=== PATIENT | female | born 1985 | race Caucasian/White ===

== ENCOUNTER 2021-11-04 09:44 | Observation (INO) | payer OTHER, SELFPAY ==
--- NOTE | ~2021-11-04 | US_ITS ---
EXAMINATION: US OB <=14 wk fetus w TV DATE: 11/04/2021 11:24 INDICATION: Pelvic pain and bleeding TECHNIQUE: Real-time transabdominal and transvaginal obstetric ultrasound. FINDINGS: No prior studies for comparison. The uterus measures 7.2 x 4.7 x 5.4 cm. There is mild endometrial thickening measuring 12 mm. No evid ence for intrauterine . There is a mass inferior to the uterus without internal vascularity measuring 1.7 x 4.7 x 7.1 cm there is free fluid surrounding the mass there is a 1.5 cm right ovarian cyst. The left ovary is not well visualized. IMPRESSION: 1. Avascular complex mass inferior to the uterus measuring 7.1 x 4.7 x 1.7 cm. Considerations include exophytic uterine or ovarian mass, resolving hemorrhage, endometrioma. Consider correlation with con trast-enhanced CT. 2: No evidence for intrauterine . Mild endometrial thickening. Reviewed, dictated and finalized at location A. UCTION QUALITY ANALYST IMPRESSION: 1. Avascular complex mass inferior to the uterus measuring 7.1 x 4.7 x 1.7 cm. Considerations include exophytic uterine or ovarian mass, resolving hemorrhage, endometrioma. Consider correlation with contrast-enhanced CT. 2: No evidence for intrauterine . Mild endometrial thickening.
[2021-11-04 09:50] VITALS: BP 143/101; PULSE 84; RESP 16; TEMP 36.6; O2SAT 97
[2021-11-04 10:22] LABS: Basophils Percent Auto 0.5 % (0.2-1.2); Eosinophils Absolute Auto 0.1 K/mm3 (0-0.3); Eosinophils Percent Auto 1.1 % (0-4.4); Hematocrit 37.1 % (37.0-47.0); Hemoglobin 12.3 g/dL (12.0-15.0); Immature Granulocyte Absolute 0.03 K/mm3 (0.00-0.031); Immature Granulocyte Percent A 0.4 % (0-0.5); Immature Platelet Fraction Pct 6.9 % (0.9-11.2); Lymphocytes Absolute Auto 2.05 K/mm3 (0.9-3.2); Lymphocytes Percent Auto 25.8 % (18.3-44.2); Mean Corpuscular HGB Conc 33.2 g/dl (32-36); Mean Corpuscular Hemoglobin 29.2 pg (26-34); Mean Corpuscular Volume 88.1 fl (80-100); Mean Platelet Volume 10.7 fl (7.4-10.4); Monocytes Absolute Auto 0.9 K/mm3 (0.1-0.6); Monocytes Percent Auto 11.3 % (2.6-8.5); Neutrophils Absolute Auto 4.9 K/mm3 (1.3-6.7); Neutrophils Percent Auto 60.9 % (45.5-73.1); Platelet Count Result 241 k/mm3 (150-375); Red Blood Count 4.21 M/mm3 (4.2-5.4); Red Cell Distribution Width 13.5 % (11.5-14.5)
[2021-11-04 10:25] LABS: Add Urine Microscopic? YES; Appearance Urine Clear (Clear); Bilirubin Urine Negative (Negative); Blood Urine 1+ (Negative); Color Urine Yellow (Yellow); Glucose Urine UA Negative (Negative); Ketones Urine Negative (Negative); Leukocyte Esterase Ur Negative LEU/UL (Negative); Mucus Urine Rare /lpf; Nitrate Urine Negative (Negative); Protein Urine 1+ mg/dL (Negative); Specific Grav Ur 1.029 (1.001-1.035); Squamous Epithelial Cell Urine Moderate /hpf (Few); Urobilinogen Urine Negative mg/dL (<2.0)
[2021-11-04 10:57] LABS: Alanine Aminotransferase 160 U/L (4-35); Albumin Level 4.1 g/dL (3.5-5.1); Alkaline Phosphatase 72 U/L (38-126); Anion Gap 7 mmol/L (8-16); Aspartate Amino Transferase 98 U/L (14-36); Bilirubin,Total 0.4 mg/dL (0.2-1.3); Blood Urea Nitrogen 12 mg/dL (7-17); Calcium 9.3 mg/dL (8.4-10.2); Carbon Dioxide 24 mmol/L (22-30); Chloride 103 mmol/L (98-107); Estimated CRCL calculation 78 ml/min; Estimated Glomerular Filt Rate > 60; Glucose 103 mg/dL (65-110); Lipase 75 U/L (23-300); Potassium 3.8 mmol/L (3.4-5.0); Sodium 134 mmol/L (137-145)
--- NOTE | 2021-11-04 11:13 | PC.NURSE ---
pt still in ultrasound at this time.
[2021-11-04 12:34] VITALS: BP 137/95; PULSE 98; RESP 18; O2SAT 98
--- NOTE | 2021-11-04 12:34 | ED.ABDPAIN ---
HPI - Abdominal Pain General Chief Complaint: Abdominal Pain <WILBERT Metcalf Last Filed: 11/04/21 12:38> Stated Complaint: lower abd pain <WILBERT Metcalf Last Filed: 11/04/21 12:38> Time Seen by Provider: 11/04/21 10:20 <WILBERT Metcalf Last Filed: 11/04/21 12:38> Source: patient <WILBERT Metcalf Last Filed: 11/04/21 12:38> Mode of arrival: ambulatory <WILBERT Metcalf Last Filed: 11/04/21 12:38> Limitations: no limitations <WILBERT Metcalf Last Filed: 11/04/21 12:38> History of Present Illness HPI narrative: This is a 36-year-old female that presents to the emergency department for pelvic pain present x2 days. Reports she had a positive September 28. She started bleeding 2 days later. She continued to bleed for a couple of weeks. She figured she had had a miscarriage. She has had some light spotting since. Over the last 2 days she has had some worsening pelvic pain which prompted her to be seen. Denies fever, vomiting, or dysuria. <WILBERT Metcalf Last Filed: 11/04/21 12:38> Related Data Allergies/Adverse Reactions: Allergies Allergy/AdvReac Type Severity Reaction Status Date / Time amoxicillin [From Augmentin] AdvReac Hives Verified 11/04/21 09:57 clavulanic acid AdvReac Hives Verified 11/04/21 09:57 [From Augmentin] hydrocodone AdvReac Nausea and Verified 11/04/21 09:57 Vomiting morphine AdvReac Hypotension Verified 11/04/21 09:57 oxycodone AdvReac Nausea and Verified 11/04/21 09:57 Vomiting prochlorperazine AdvReac Drowsy Verified 11/04/21 09:57 [From Compazine] Sulfa (Sulfonamide AdvReac Nausea and Verified 11/04/21 09:57 Antibiotics) Vomiting <WILBERT Metcalf Last Filed: 11/04/21 12:38> Review of Systems Review of Systems: CONSTITUTIONAL: Denies fever GASTROINTESTINAL: Reports pelvic pain. Denies vomiting GENITOURINARY: Denies dysuria <Jayshree Khan PA-C - Last Filed: 11/04/21 12:38> All systems reviewed & are unremarkable except as noted in HPI and below <Jayshree Khan PA-C - Last Filed: 11/04/21 12:38> PMFSH Past Medical History Medical History: Medical History (Updated 11/04/21 @ 12:38 by Jayshree Khan PA-C) History of osteosarcoma <Jayshree Khan PA-C - Last Filed: 11/04/21 12:38> Social History Social History: Social History (Updated 11/04/21 @ 12:37 by Jayshree Khan PA-C) Smoking status: Never smoker <Jayshree Khan PA-C - Last Filed: 11/04/21 12:38> Exam Narrative: GENERAL: Well-appearing, well-nourished, and in no acute distress. HEAD: Normocephalic, atraumatic. EYES: EOMI. CHEST: Clear to auscultation. No respiratory distress. No wheezes rales or rhonchi HEART: Regular rate and rhythm. No murmur heard. Normal peripheral pulses. ABDOMEN: Soft, nondistended, normal active bowel sounds. Mild tenderness to palpation in the lower abdomen/pelvis, without guarding EXTREMITIES: Normal range of motion. No edema. SKIN: Warm, dry, no rash. NEURO: No focal deficits. Alert and oriented x3. PSYCH: Normal mood and affect PELVIC: Normal external genitalia. Normal-appearing cervix. Very small amount of blood oozing from the cervix <Jayshree Khan PA-C - Last Filed: 11/04/21 12:38> Course GLUER AND SLICER HAND/PA Physician Supervision For this patient encounter, I reviewed the GLUER AND SLICER HAND or PA documentation, treatment plan, and medical decision making; and I had [id number] time with this patient. Patient complains of lower abdominal pain. She appears to be in no acute distress. Plan admit for observation. <Alondra Guthrie MD - Last Filed: 11/04/21 12:42> Vital Signs Vital signs: Vital Signs Temperature 36.6 C 11/04/21 09:50 Pulse Rate 84 11/04/21 09:50 Respiratory Rate 16 11/04/21 09:50 Blood Pressure 143/101 H 11/04/21 09:50 Pulse Oximetry 97 11/04/21 09:50 Temperature 36.6 C 11/04/21 09:50 Puls
[2021-11-04 13:34] VITALS: BP 117/78; PULSE 67; RESP 13; O2SAT 98
[2021-11-04 15:24] VITALS: BMI 26.6
--- NOTE | 2021-11-04 15:53 | ADMGEN ---
This patient, Cindy Tanner, was admitted to [facility] Surg Room 303-01 at 1445. Patient/family oriented to hospital policies and general routines including ID bracelet, bed and alarms, visiting hours, pain management, procedures, bathroom and other care routines, personal items, smoking policy, room service/diet, and visiting hours. Information on how to activate the Rapid Response Team has been discussed. Patient/Family are encouraged to report perceived risks to care and to ask questions if they do not understand what they are told or what they should do.
[2021-11-04 22:00] VITALS: BP 103/55; PULSE 66; RESP 16; TEMP 36.2; O2SAT 99
[2021-11-05 06:00] VITALS: BP 116/50; PULSE 60; RESP 16; TEMP 36.4; O2SAT 98
[2021-11-05 06:53] LABS: Basophils Percent Auto 0.6 % (0.2-1.2); Eosinophils Absolute Auto 0.1 K/mm3 (0-0.3); Eosinophils Percent Auto 2.5 % (0-4.4); Hematocrit 35.4 % (37.0-47.0); Hemoglobin 11.6 g/dL (12.0-15.0); Immature Granulocyte Absolute 0.01 K/mm3 (0.00-0.031); Immature Granulocyte Percent A 0.2 % (0-0.5); Lymphocytes Absolute Auto 2.07 K/mm3 (0.9-3.2); Lymphocytes Percent Auto 39.6 % (18.3-44.2); Mean Corpuscular HGB Conc 32.8 g/dl (32-36); Mean Corpuscular Hemoglobin 28.5 pg (26-34); Mean Platelet Volume 10.2 fl (7.4-10.4); Monocytes Absolute Auto 0.6 K/mm3 (0.1-0.6); Monocytes Percent Auto 12.2 % (2.6-8.5); Neutrophils Absolute Auto 2.4 K/mm3 (1.3-6.7); Neutrophils Percent Auto 44.9 % (45.5-73.1); Platelet Count Result 280 k/mm3 (150-375); Red Blood Count 4.07 M/mm3 (4.2-5.4); Red Cell Distribution Width 13.4 % (11.5-14.5); White Blood Count 5.2 K/mm3 (4.5-10.0)
--- NOTE | 2021-11-05 08:50 | PM.IMHP ---
H&P: HPI History of Present Illness Date/Time: 11/05/21 0850 36 y/o with LMP 08/25/21, had a positive test on 09/28/21. She had assumed she was infertile after chemotherapy. She then developed vaginal bleeding for 2 weeks, and she assumed she'd had a miscarriage. 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 She had intercourse 2 days ago and then developed pain and some spotting afterward. Beta hcg 16K, but with an empty uterus and an extrauterine mass. Pain stable today, and hcg has decreased to 14K. 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 Had surgical excision of the hand lesion, biopsies of lung lesions, placement of a port, chemotherapy, and removal of the port. Had a laparotomy for large ovarian cysts in 2011. She sees specialists at [facility] and is scheduled for CT of lungs next month. She sees Dr. Richards at [facility] to follow low bone mass, as well. Chief Complaint: Pain Review of Systems Review of Systems: All systems reviewed & are unremarkable except as noted in HPI and below PMFSH Past Medical History Medical History (Updated 11/05/21 @ 12:27 by Eber Tejada MD) History of osteosarcoma Surgical History Surgical History H/O hand surgery History of laparotomy History of lung biopsy History of removal of Port-a-Cath Social History Social History Smoking status: Never smoker Alcohol intake: never Substance use type: marijuana Spiritual care concerns: No Comments Past OB: oy in 2007 at term weighing 6#3oz. 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 Meds Home Medications and Allergies Home Medications Medication Instructions Recorded Confirmed Type calcium carbonate 1,000 mg PO DAILY 11/04/21 11/04/21 History cholecalciferol (vitamin D3) 50 mcg PO DAILY 11/04/21 11/04/21 History Allergies Allergy/AdvReac Type Severity Reaction Status Date / Time amoxicillin [From Augmentin] AdvReac Hives Verified 11/04/21 19:53 clavulanic acid AdvReac Hives Verified 11/04/21 19:53 [From Augmentin] hydrocodone AdvReac Nausea and Verified 11/04/21 19:53 Vomiting morphine AdvReac Hypotension Verified 11/04/21 19:53 oxycodone AdvReac Nausea and Verified 11/04/21 19:53 Vomiting prochlorperazine AdvReac Drowsy Verified 11/04/21 19:53 [From Compazine] Sulfa (Sulfonamide AdvReac Nausea and Verified 11/04/21 19:53 Antibiotics) Vomiting Vital Signs Vital Signs - 24 hr 11/04/21 12:34 11/04/21 13:34 11/04/21 22:00 Temperature 36.2 C L Pulse Rate 98 67 66 Respiratory Rate 18 13 16 Blood Pressure 137/95 H 117/78 103/55 L Pulse Oximetry 98 98 99 11/05/21 06:00 Temperature 36.4 C Pulse Rate 60 Respiratory Rate 16 Blood Pressure 116/50 L Pulse Oximetry 98 Exam Const: Orientation/consciousness: patient oriented x3 Other: Well-developed, well-nourished female in no acute distress. Neck: Thyroid: thyroid normal Lymphatic: no lymphadenopathy noted (in neck, axilla or inguinal nodes) Resp: Effort & Inspection: normal respiratory effort Auscultation: clear to auscultation bilaterally Cardio: Rate: regular rate Rhythm: regular rhythm Heart sounds: S1 normal heart sound present and S2 normal heart sound present GI: Other: ABD: Soft, nondistended. Mildly tender in lower quadrants, R>L, remote from McBurney's point. No guarding or rebound tenderness. No hepatosplenomegaly. : General: Yes no CVA tenderness Other: Deferred. (Pt. in hospital bed.) Back/Spine/Pelvis: Back: no CVA tenderness Skin: General skin exam: normal color and no rashes or lesions noted Neuro: General: patient oriented x3 Extrem: Other: Extremities: nontender with no edema Psych: Mental Status: mental status grossly normal Affect: normal affect H&P: Results Labs La
[2021-11-05] MEDS: METHOTREXATE SODIUM/PF 50 MG/2 ML VIAL 46 MG IM ×2 (13:21→13:22)
== END 2021-11-05 14:50 | disposition home or self-care (01) ==
LOC: ANHED 12:22 → ANH3MEDSUR 14:27
PROVIDERS: Physician Assistant; Admitting Provider Obstetrics & Gynecology; Emergency Provider Emergency Medicine; Visit Provider Obstetrics & Gynecology
DX: O00.90 Unspecified ectopic pregnancy without intrauterine pregnancy (principal); Z85.831 Personal history of malignant neoplasm of soft tissue; C78.00 Secondary malignant neoplasm of unspecified lung; R19.00 Intra-abdominal and pelvic swelling, mass and lump, unspecified site; Z92.21 Personal history of antineoplastic chemotherapy; Z28.21 Immunization not carried out because of patient refusal; Z3A.00 Weeks of gestation of pregnancy not specified
CPT/HCPCS: 36415; 76801; 76817; 80053; 81001; 81025; 83690; 84702; 85025; 85055; 85461; 96365; 96372; 96374; 96376; 99285; G0378; J0131; J9260

== ENCOUNTER 2021-11-28 16:26 | Outpatient (CLI) | payer OTHER, SELFPAY ==
[2021-11-28 17:35] LABS: Beta HCG Quantitative 236.09 mIU/ML
== END 2021-11-28 16:27 | disposition home or self-care (01) ==
LOC: ANHLAB 16:30
PROVIDERS: Visit Provider Obstetrics & Gynecology
DX: O00.90 Unspecified ectopic pregnancy without intrauterine pregnancy (principal); Z3A.00 Weeks of gestation of pregnancy not specified
CPT/HCPCS: 36415; 84702

== ENCOUNTER 2023-03-06 11:45 | Emergency (ER) | payer OTHER, SELFPAY ==
--- NOTE | ~2023-03-06 | CT_ITS ---
EXAMINATION: CT abdomen pelvis w con DATE: 03/06/2023 14:13 INDICATION: Abdominal and low back pain. History of kidney stones and ovarian cyst. History of osteos arcoma. TECHNIQUE: Computed tomography (CT) of the abdomen and pelvis was performed with 100 CC Omnipaque 350 intravenous contrast. Automated exposure control and iterative reconstruction technique were employe d. Exam dose: 311.19 mGy-cm total exam DLP. COMPARISON: None. FINDINGS: The lung bases are clear of infiltrate or consolidation. Normal heart size. No pericardial or pleural effusion. Very small sliding hiatal hernia. The gallbladder is contracted. No gallbladder wall thickening or pericholecystic fluid or fat strandi ng. No bile duct or pancreatic duct dilatation. No hepatic, splenic, pancreatic or adrenal space-occupying mass lesion. There is a pinpoint probable nonobstructing upper pole right renal calculus. There is a 2 mm nonobstructing mid left renal calculus. A pinpoint several lower pole nonobstructing left renal calculus No other urinary tract calculus or hydroureteronephrosis is detected. Normal caliber of the abdominal aorta. No intraperitoneal or retroperitoneal or pelvic mass lesion or adenopathy or ascites. Retroverted uterus. The adnexal areas are unremarkable. The urinary bladder appears normal. Normal appendix. Diverticulosis of the left and right colon; no CT evidence of diverticulitis. No bowel obstruction, b owel wall thickening, pneumatosis or intraperitoneal free air. Small fat-containing umbilical hernia. No suspicious osteolytic or osteoblastic lesions are noted. IMPRESSION: Mild bilateral nephrolithiasis; no urinary tract obstruction or hydronephrosis Very small sliding hiatal hernia Normal appendix Diverticulosis of the colon; no CT evidence of diverticulitis Reviewed, dictated and finalized at [facility]. Reviewed, dictated and finalized at location L. IMPRESSION: Mild bilateral nephrolithiasis; no urinary tract obstruction or hy dronephrosis Very small sliding hiatal hernia Normal appendix Diverticulosis of the colon; no CT evidence of diverticulitis
[2023-03-06 11:49] VITALS: BP 151/106; PULSE 106; RESP 18; TEMP 36.1; O2SAT 100
[2023-03-06] MEDS: SODIUM CHLORIDE 0.9% IV 1,000 ML 999 ML IV CONT (13:13)
[2023-03-06 13:34] LABS: Basophils Percent Auto 0.4 % (0.2-1.2); Eosinophils Absolute Auto 0.1 K/mm3 (0-0.3); Eosinophils Percent Auto 1.7 % (0-4.4); Hematocrit 40.7 % (37.0-47.0); Hemoglobin 13.5 g/dL (12.0-15.0); Immature Granulocyte Absolute 0.01 K/mm3 (0.00-0.031); Immature Granulocyte Percent A 0.2 % (0-0.5); Lymphocytes Absolute Auto 1.76 K/mm3 (0.9-3.2); Lymphocytes Percent Auto 38.3 % (18.3-44.2); Mean Corpuscular HGB Conc 33.2 g/dl (32-36); Mean Corpuscular Hemoglobin 29.4 pg (26-34); Mean Corpuscular Volume 88.7 fl (80-100); Mean Platelet Volume 9.7 fl (7.4-10.4); Monocytes Absolute Auto 0.5 K/mm3 (0.1-0.6); Monocytes Percent Auto 11.7 % (2.6-8.5); Neutrophils Absolute Auto 2.2 K/mm3 (1.3-6.7); Neutrophils Percent Auto 47.7 % (45.5-73.1); Platelet Count Result 284 k/mm3 (150-375); Red Blood Count 4.59 M/mm3 (4.2-5.4); Red Cell Distribution Width 12.2 % (11.5-14.5); White Blood Count 4.6 K/mm3 (4.5-10.0)
[2023-03-06 13:40] LABS: Appearance Urine Turbid (Clear); Bacteria Urine 2+ /hpf; Bilirubin Urine Negative (Negative); Blood Urine 2+ (Negative); Color Urine Yellow (Yellow); Glucose Urine UA Negative (Negative); Ketones Urine Negative (Negative); Leukocyte Esterase Ur 2+ LEU/UL (Negative); Nitrate Urine Negative (Negative); Non Pathogenic Casts 0-2; Protein Urine Negative (Negative); Specific Grav Ur 1.022 (1.001-1.035); Squamous Epithelial Cell Urine Many /hpf (Few); WBC Urine 21-50 /hpf; pH Urine 6.5 (5.0-9.0)
[2023-03-06 13:50] LABS: Add Urine Microscopic? YES; Alanine Aminotransferase 24 U/L (6-35); Albumin Level 4.8 g/dL (3.5-5.1); Alkaline Phosphatase 75 U/L (38-126); Anion Gap 7 mmol/L (8-16); Aspartate Amino Transferase 29 U/L (14-36); Bilirubin,Total 0.5 mg/dL (0.2-1.3); Blood Urea Nitrogen 15 mg/dL (7-17); Calcium 9.1 mg/dL (8.4-10.2); Carbon Dioxide 29 mmol/L (22-30); Chloride 101 mmol/L (98-107); Estimated CRCL calculation 67 ml/min; Estimated Glomerular Filt Rate > 60; Glucose 86 mg/dL (65-110); Potassium 3.8 mmol/L (3.4-5.0); Sodium 137 mmol/L (137-145)
--- NOTE | 2023-03-06 13:58 | ED.GENADULT ---
HPI - General Adult General Chief complaint: Urogenital-Female Stated complaint: low back pain Time Seen by Provider: 03/06/23 12:08 History of Present Illness HPI narrative: This is a 37-year-old female, with past history of osteosarcoma of the right hand status post excision of the right fourth and fifth digits, who presents emergency department complaining of back pain for the past week and dysuria for the past day. The patient states her back pain is rated as sore and cramping, initially presenting on the right and now spreading to the left, rated 4/10 and different than previous pain. She also notes today she had burning with urination without blood or abnormal vaginal discharge. Related Data Home Medications Medication Instructions Recorded Confirmed calcium carbonate 1,000 mg tablet 1,000 mg PO DAILY 11/04/21 11/04/21 cholecalciferol (vitamin D3) 50 50 mcg PO DAILY 11/04/21 11/04/21 mcg (2,000 unit) tablet Allergies Allergy/AdvReac Type Severity Reaction Status Date / Time amoxicillin [From Augmentin] AdvReac Hives Verified 03/06/23 11:46 clavulanic acid AdvReac Hives Verified 03/06/23 11:46 [From Augmentin] hydrocodone AdvReac Nausea and Verified 03/06/23 11:46 Vomiting morphine AdvReac Hypotension Verified 03/06/23 11:46 oxycodone AdvReac Nausea and Verified 03/06/23 11:46 Vomiting prochlorperazine AdvReac Drowsy Verified 03/06/23 11:46 [From Compazine] Sulfa (Sulfonamide AdvReac Nausea and Verified 03/06/23 11:46 Antibiotics) Vomiting Review of Systems Review of Systems: CONSTITUTIONAL: Denies fever, chills, or sweats. CARDIOVASCULAR: Denies chest pain, palpitations, or edema. RESPIRATORY: Denies cough or dyspnea. GASTROINTESTINAL: Denies abdominal pain, nausea, vomiting, or diarrhea. GENITOURINARY: Dysuria denies hematuria. SKIN: Denies rash or itching. MUSCULOSKELETAL: Back pain denies joint pain, or myalgia. NEUROLOGIC: Denies headache, numbness, dizziness, or weakness. PSYCHIATRIC: Denies anxiety or depression. [facility] Past Medical History Medical History (Updated 03/06/23 @ 15:15 by Angelito Lazaro MD) Ectopic History of osteosarcoma Kidney stones Surgical History Surgical History H/O hand surgery History of laparotomy History of lung biopsy History of removal of Port-a-Cath Social History Social History Smoking status: Never smoker Alcohol intake: never Substance use type: marijuana Spiritual care concerns: No Exam Narrative: GENERAL: Well-developed, well-nourished, and in no acute distress. HEAD: Normocephalic, atraumatic. EYES: PERRLA and EOMI. ENT: Nares clear, no rhinorrhea or epistaxis. Mucous membranes moist. Oropharynx without tonsillar hypertrophy exudate or other lesions. CHEST: Clear to auscultation. No respiratory distress. No wheezes rales or rhonchi HEART: Regular rate and rhythm. No murmur heard. Normal peripheral pulses. ABDOMEN: Soft, nontender, nondistended, normal active bowel sounds. Mild right CVA tenderness to palpation, no left CVA tenderness to palpation EXTREMITIES: Well-healed surgical amputation of the right fourth and fifth digits of the right hand. Normal range of motion. No edema. SKIN: Warm, dry, no rash. NEURO: No focal deficits. Alert and oriented x3. PSYCH: Normal mood and affect. Course Course Emergency Course: 15:00 - UA consistent with UTI. CBC unremarkable. Chemistry is unremarkable. CT abdomen pelvis demonstrates hiatal hernia, diverticulosis and nephrolithiasis without ureterolithiasis but is otherwise unremarkable including no changes concerning for osteolytic or osteoblastic lesions. On reevaluation, the patient states her pain is improved. Will discharge with antibiotics for pyelonephritis. Discussed return and emergency precautions including signs/symptoms of
== END 2023-03-06 16:09 | disposition home or self-care (01) ==
PROVIDERS: Emergency Provider Preventive Medicine Aerospace Medicine; PCP Emergency Medicine
DX: N12 Tubulo-interstitial nephritis, not specified as acute or chronic (principal); Z85.830 Personal history of malignant neoplasm of bone; Z87.442 Personal history of urinary calculi; N20.0 Calculus of kidney; K57.90 Diverticulosis of intestine, part unspecified, without perforation or abscess without bleeding; K44.9 Diaphragmatic hernia without obstruction or gangrene
CPT/HCPCS: 36415; 74177; 80053; 81001; 81025; 85025; 87086; 96361; 96365; 99284; J0131; J7030; Q9967

== ENCOUNTER 2023-03-19 12:07 | Outpatient (CLI) | payer OTHER, SELFPAY ==
--- NOTE | ~2023-03-19 | XR_ITS ---
Z XR chest 2V 03/19/2023 12:45 Indication: Left lung nodule. Procedure: 2 view chest Comparison: No prior studies for comparison. Findings: There is a surgical staple line in the right mid thorax. No focal air space disease, pulmon jeff edema, pleural effusion or suspected pneumothorax. Heart size normal. Impression: 1: No acute cardiopulmonary disease. If there is concern for pulmonary nodule, follow-up CT recommend ed. Reviewed, dictated and finalized at location [] Impression: 1: No acute cardiopulmonary disease. If there is concern for pulmonary nodule, follow-up CT recommended.
--- NOTE | ~2023-03-19 | XR_ITS ---
Thoracic spine: Clinical Indication: Back pain AP and lateral views were performed. No fracture is seen. There is normal alignment of the vertebrae. The intervertebral disc spaces appe ar normal. Paravertebral soft tissues appear normal. Impression: No significant abnormalities noted. Reviewed, dictated and finalized at [facility]. Impression: No significant abnormalities noted.
--- NOTE | ~2023-03-19 | XR_ITS ---
XR abdomen/kub 1V 03/19/2023 12:44 INDICATION: Back pain TECHNIQUE: KUB COMPARISON: None FINDINGS: Bowel gas pattern is normal. Moderate colonic fecal loading. There is no evidence of free a ir, mass, organomegaly, ascites or obstruction. No abnormal calculi are seen. The bones appear inta ct. IMPRESSION: 1: No acute abdominal abnormality identified. Reviewed, dictated and finalized at location []
--- NOTE | ~2023-03-19 | XR_ITS ---
Lumbosacral Spine: AP and lateral views Clinical History: Pain Findings: The normal lordotic curve is maintained. The vertebral bodies and posterior elements are i ntact. The intervertebral disc spaces are preserved. There is mild facet arthropathy from L4 through S1. The sacroiliac joints are normally outlined. Impression: Mild facet arthropathy at the lower lumbar spine. Reviewed, dictated and finalized at location . Impression: Mild facet arthropathy at the lower lumbar spine.
--- NOTE | ~2023-03-19 | XR_ITS ---
Cervical Spine: AP, lateral, open-mouth views Clinical History: Pain Findings: The normal lordotic curve is maintained. The vertebral bodies and posterior elements appea r intact. The intervertebral disc spaces are well maintained. Pre-vertebral soft tissues are unremar kable. Impression: No significant abnormality is seen. Reviewed, dictated and finalized at [facility]. Impression: No significant abnormality is seen.
[2023-03-19 12:35] LABS: Appearance Urine Clear (Clear); Bacteria Urine Rare /hpf; Bilirubin Urine Negative (Negative); Blood Urine Negative (Negative); Color Urine Yellow (Yellow); Glucose Urine UA Negative (Negative); Ketones Urine Trace mg/dL (Negative); Leukocyte Esterase Ur 2+ LEU/UL (Negative); Nitrate Urine Negative (Negative); Non Pathogenic Casts 0-2; Protein Urine Negative (Negative); Specific Grav Ur 1.023 (1.001-1.035); Squamous Epithelial Cell Urine Few /hpf (Few); Urobilinogen Urine 0.2 mg/dL (<2.0)
[2023-03-19 12:52] LABS: Add Urine Microscopic? YES
[2023-03-19 13:15] LABS: Vitamin D 25 Hydroxy 29.9 ng/mL
== END 2023-03-19 12:08 | disposition home or self-care (01) ==
LOC: ANHLAB 12:11
PROVIDERS: PCP Emergency Medicine; Visit Provider Emergency Medicine
DX: N12 Tubulo-interstitial nephritis, not specified as acute or chronic (principal); R20.2 Paresthesia of skin; R91.8 Other nonspecific abnormal finding of lung field; M54.9 Dorsalgia, unspecified
CPT/HCPCS: 36415; 71046; 72050; 72072; 72100; 74018; 81001; 82306; 87086

== ENCOUNTER 2023-03-28 11:18 | Outpatient (CLI) | payer OTHER, SELFPAY | END 2023-03-28 11:19 | disposition home or self-care (01) | LOC: ANHLAB 11:22 | PROVIDERS: PCP Emergency Medicine; Visit Provider Emergency Medicine | DX: N39.0 Urinary tract infection, site not specified (principal) | CPT/HCPCS: 87086 ==

== ENCOUNTER 2025-05-13 09:41 | Outpatient (CLI) | payer OTHER, SELFPAY ==
--- NOTE | ~2025-05-13 | MM_ITS ---
EXAMINATION: MM screening celeste BI w merlene HISTORY: Screening TECHNIQUE: Craniocaudal and mediolateral oblique 3-D tomosynthesis images were obtained and synthetic 2-D images were generated. CAD analysis was submitted and interpreted. COMPARISON: No prior mammogram is available for comparison at this institution. BREAST PARENCHYMAL COMPOSITION: Not dense: There are scattered areas of fibroglandular density. FINDINGS: There is no evidence of suspicious mass, calcification, or architectural distortion to sugg est malignancy in either breast. There has been no suspicious interval change. IMPRESSION: 1. No mammographic evidence of malignancy. 2. Recommend routine screening mammography in one year. BI-RADS Category 1: Negative Reviewed, dictated and finalized at location A.
--- OUTSIDE RECORDS SUMMARY | 2025-05-13 09:49 | XMS_ITS | Encounter Summary ---
Author Organization [facility] Address [address] [place] [address] Phone Care Team Providers Care Drafter Automotive Design Name Role Phone Bravo Castanon DO Unavailable [phone] Brandyn Khan MD Unavailable [phone] Neil Landaverde MD Unavailable [phone] No, Physician Primary Care Provider [phone] Rosa Gallo MD Primary Care Provid er Encounter Details Date Type Department Care Team (Latest Contact Info) Description 11/12/2023 Orders Only [facility] Scanning, Provider Social History Tobacco Use Types Packs/Day Years Used Date Smoking Tobacco: Former Smokeless Tobacco: Never Comments Unknown Sex and Gender Information Value Date Recorded Sex Assigned at Not on file 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 Most shantal has familial hypercholesterolemia. Would recommend atorvastatin 40 mg daily to start with (or rosuvastatin 20 mg daily if she likes grapefruit) but this mayneed increased in the future based on how high her LDL is. documented in this encounter Plan of Treatment Not on file documented as of this encounter Procedures Procedure Name Priority Date/Time Associated Diagnosis Comments SCAN - LABS 11/12/2023 documented in this encounter Results * SCAN - LABS (11/12/2023) us Provider Scanning Final Result documented in this encounter Visit Diagnoses Not on filedocumented in this encounter Care Teams Drafter Automotive Design Relationship Specialty Start Date End Date No, Physician PCP - General 12/21/18 12/21/23 Rosa Gallo MD [address] [address] PCP - General Internal Medicine 12/22/23 Bravo Castanon DO Referring Physician Medical Oncology 12/11/18 Brandyn Khan MD [phone] [place] [address] Consulting Physician Gynecologic Oncology 12/11/18 Neil Landaverde MD [phone] [place] [address] Consulting Physician Gynecologic Oncology 12/11/18 documented as of this encounter
--- OUTSIDE RECORDS SUMMARY | 2025-05-13 09:49 | XMS_ITS | Clinical Summary ---
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 Gender Identity Not on file Sexual Orientation Not on file Plan of Treatment Health Maintenance Due Date Last Done Comments Hepatitis C Virus (HCV) Screening 1984 Mammogram 1984 TdaP Immunization 1984 Hepatitis B Immunization (1 of 3 - 19+ 3-dose series) 2003 Pap Smear 2005 Human Papillomavirus (HPV) Immunization (1 - 3-dose SCDM series) 2011 Cervical Cancer Screening (CCS) 2014 HPV/Cotest 2014 SARS-COV-2 Immunization (3 - 2023-25 season) 2024 05/09/2021, 04/18/2021 Discussion re Starting/Frequency of Mammograms 2024 Influenza Immunization (#1) 2025 Respiratory Syncytial Virus (RSV) Immunization (Adult) (1 - 1-dose 75+ series) 2059 Meningococcal Immunization (ACWY) Aged Out No longer eligible b ased on patient's age to complete this topic Pneumococcal Immunization Combined Aged Out No longer eligible b ased on patient's age to complete this topic Rotavirus Immunization Aged Out No lo nger eligible based on patient's age to complete this topic
--- OUTSIDE RECORDS SUMMARY | 2025-05-13 09:49 | XMS_ITS | Encounter Summary ---
Author Organization [facility] Address [address] [place] [address] Phone Care Team Providers Care Celery Packer Name Role Phone Bravo Castanon DO Unavailable [phone] Brandyn Khan MD Unavailable [phone] Neil Landaverde MD Unavailable [phone] Rosa Gallo MD Primary Care Provid er Encounter Details Date Type Department Care Team (Late st Contact Info) Description 12/17/2024 Telephone [facility] Cardiology [address] [place] [address] [place] [address] Deedee Ballard Social History Tobacco Use Types Packs/Day Years Used Date Smoking Tobacco: Former Cigarettes Smokeless Tobacco: Never Comments Unknown Sex and Gender Information Value Date Recorded Sex Assigned at Not on file 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 Gender Identity Not on file Sexual Orientation Not on file documented as of this encounter Plan of Treatment Not on file documented as of this encounter Visit Diagnoses Not on filedocumented in this encounter Care Teams Celery Packer Relationship Specialty Start Date End Date Rosa Gallo MD [address] [place] [address] PCP - General Internal Medicine 12/22/23 Bravo Castanon DO Referring Physician Medical Oncology 12/11/18 Brandyn Khan MD [phone] [place] [address] Consulting Physician Gynecologic Oncology 12/11/18 Neil Landaverde MD [address] [facility] [phone] [place] [address] Consulting Physician Gynecologic Oncology 12/11/18 documented as of this encounter
--- OUTSIDE RECORDS SUMMARY | 2025-05-13 09:49 | XMS_ITS | Clinical Summary ---
Author Organization [facility] Assignment Editor Address [address] [place] [address] Care Team Providers Care Remedial Masseur Name Role Phone Rosa Gallo MD Primary Care Provider Source Comments [facility] Assignment Editor,non-owned Affiliates and Associated Physician Practices is amultiple site organization consisting of ambulatory clinics and hospital sitesin [place], [place], [place] and [place]. This disclosure is being madepursuant to the Care Everywhere program and may not contain all information available regarding this patient. Last updated 18.[facility] Assignment Editor Allergies Active Allergy Reactions Criticality Noted Date Comments Adhesive Sensitivity Urticaria,Itching Medium 12/29/19 19 Prochlorperazine Other 02/16/2013 Extreme fatigue Morphine Other 02/16/2013 Low b/p Oxycodone Diarrhea,Nausea and/or Vomiting 02/16/2013 Sulfa Drugs Nausea and/or Vomiting 02/16/2013 Vancomycin Urticaria,Rash Low 02/16/2013 Hydrocodone-Acetaminophen Nausea and/or Vomiting 02/16/2013 Medications * This document contains information received from the source organization and may not represent a complete record from that organization. * Be aware that medications may not be up to date on this document. Alwaysverify current medications with the patient. diphenhydrAMINE (BENADRYL) 25 MG tablet Take by mouth every 4 hours as needed for Itching Active fexofenadine (Su) 60 MG tablet Take 1 (one) tablet by mouth once daily Active Drospirenone (Slynd) 4 MG TABS tablet Take 1 (one) tablet by mouth once daily Active chlorhexidine (Peridex) 0.12 % solution Swish and spit 2 times daily 09/07/2024 Active lidocaine viscous (Xylocaine) 2 % solution 5 mL by Mouth/Throat route as needed 07/21/2024 Active atorvastatin (Lipitor) 40 MG tablet Take 1 (one) tablet by mouth once daily 90 tablet 3 09/08/2024 Active sertraline (Zoloft) 100 MG tablet Take 1 (one) tablet by mouth once daily 90 tablet 3 09/08/2024 Active Cholecalciferol 1.25 MG (24883 UT) Take 1 capsule by mouth every 14 days 6 capsule 3 09/08/2024 Active Active Problems Problem Noted Date Diagnosed Date Current mild episode of major depressive disorde r 12/15/2023 Severe episode of recurrent major depressive disorder, without psychotic features 10/14/2023 Vitamin D deficiency 01/21/2020 10/14/2023 Overview (10/14/2023): Calcium, D 4000 IU daily No fractures 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 Lung nodule resections 2010 and 2011. 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, including shoulder 08/29/2011 10/14/2023 Immunizations Immunization Administration Dates Next Due Correlec primary monovalent 12+ yr 0.3mL Pur ple cap 05/09/2021 Family History Medical History Relation Name Comments Cancer - Lung Father Cancer - Prostate Maternal Grandfather Cancer - Breast Maternal Grandmother Cancer - Prostate Maternal Uncle Diabetes Mother Hypertension Mother Heart Disease Paternal Grandfather PA<55(male) Paternal Grandfather Cancer - Other Paternal Grandmother skin Cancer - Other Paternal Uncle lung Relation Name Status Comments Father Maternal Grandfather Maternal Grandmother Maternal Uncle Mother Alive Paternal Grandfather Paternal Grandmother Paternal Uncle Social History Tobacco Use Types Packs/Day Years Used Date Smoking Tobacco: Former Cigarettes Q uit: 03/29/2012 Smokeless Tobacco: Never Tobacco Cessation:Counseling Given: No Alcohol Use Standard Drinks/Week Comments Yes 0 (1 standard drink = 0.6 oz pur e alcohol) PHQ-2 Answer Date Recorded Patient Health Questionnaire-2 Score 4 09/08/2024 Comments No Sex and Gender Information Value Date Recorded Sex Assigned at Not on file Legal Sex Female 1:34 PM RN TRANSFER Gender Identity Not on file Sexual Orientation Not on file Last Filed Vital Signs Vital Sign Reading Time Taken Comments Blood Pressure 123/81 09/08/2024 10:10 AM RN TRANSFER Pulse 56 09/08/2024 10:10 AM RN TRANSFER Temperature 36.4 C (97.5 F) 09/08/2024 10:10 AM RN TRANSFER Respiratory Rate 16 01/11/2021 6:48 AM CDT Oxygen Saturation 99% 09/08/2024 10:10 AM RN TRANSFER Inhaled Oxygen Concentration - - Weight 72.7 kg (160 lb 3.2 oz) 09/08/2024 10:10 AM RN TRANSFER Height 152.4 cm (5') 09/08/2024 10:10 AM RN TRANSFER Body Mass Index 31.29 09/08/2024 10:10 AM RN TRANSFER Plan of Treatment Health Maintenance Due Date Last Done Comments MAMMOGRAM 1984 DTAP/TDAP/TD VACCINES (1 - Tdap) 2003 HEPATITIS B VACCINE (1 of 3 - 19+ 3-dose series) 2003 HPV VACCINE (1 - 3-dose SCDM series) 2011 DEPRESSION SCREENING 09/29/2024 10/14/2023 INFLUENZA VACCINE (#1) 2025 COVID-19 VACCINE ( season) 2025 05/09/2021, 04/18/2021 Postponed from 05/30/2024 (Patient Directed) PAP SMEAR 11/05/2026 11/05/2023 (Done Outside Per Patient), 03/25/2013 (Previously completed) SCREENING FOR DIABETES 09/10/2027 , 12/22/2023, 12/22/2023, Additional history exists ZOSTER VACCINE (1 of 2) 2034 HEPATITIS C SCREENING Completed 10/14/2023 HIV SCREENING Completed 10/14/2023 HIB VACCINE Aged Out No longer eligi ble based on patient's age to complete this topic MENINGOCOCCAL (Group B) VACCINE SHARED DECISION-MAKING Aged Out No longer eligible based on patient's age to complete this topic MENINGOCOCCAL GROUPS A/C/Y/W VACCINE Aged Out No longer eligible based on patient's age to complete this topic PNEUMOCOCCAL VACCINE Aged Out No long er eligible based on patient's age to complete this topic Procedures Procedure Name Priority Date/Time Associated Diagnosis Comments COMPREHENSIVE METABOLIC PANEL Routine 09/10/2024 9:55 AM RN TRANSFER Dyslipidemia Current mild episode of major depressive disorder, unspecified whether recurrent HEPATITIS C ANTIBODY W RFLX PCR Routine 10/14/2023 11:36 AM RN TRANSFER Healthcare maintenance Need for hepatitis C screening test HIV-1 HIV-2 ANTIBODY + HIV P24 AG PANEL Routine 10/14/2023 11:36 AM RN TRANSFER Healthcare maintenance Screening for HIV (human immunodeficiency virus) from Last 3 Months or Most Recently Relevant to Health Maintenance Results * (ABNORMAL) COMPREHENSIVE METABOLIC PANEL (09/10/2024 9:55 AM RN TRANSFER) Glucose 85 70 - 99 mg/dL [facility] INSURANCE BILL BUN 18 6 - 24 mg/dL [facility] INSURANCE BILL Creatinine 1.01(H) 0.57 - 1.00 mg/dL [facility] INSURANCE BILL eGFR by CKD-EPI 72 >59 mL/min/1.7 3 [facility] INSURANCE BILL BUN/Creatinine Ratio 18 9 - 23 [facility] INSURANCE BILL Sodium 140 134 - 144 mmol/L [facility] INSURANCE BILL Potassium 4.9 3.5 - 5.2 mmol/L [facility] INSURANCE BILL Chloride 101 96 - 106 mmol/L [facility] INSURANCE BILL CO2 22 20 - 29 mmol/L [facility] INSURANCE BILL Calcium 9.8 8.7 - 10.2 mg/dL [facility] INSURANCE BILL Protein Total 7.7 6.0 - 8.5 g/dL [facility] INSURANCE BILL Albumin 4.8 3.9 - 4.9 g/dL [facility] INSURANCE BILL Globulin Total 2.9 1.5 - 4.5 g/dL [facility] INSURANCE BILL Bilirubin Total 0.5 0.0 - 1.2 mg/dL [facility] INSURANCE BILL Alkaline Phosphatase 85 44 - 121 IU/L [facility] INSURANCE BILL AST 30 0 - 40 IU/L [facility] INSURANCE BILL ALT 28 0 - 32 IU/L [facility] INSURANCE BILL Blood BLOOD SPECIMEN / Unknown 09/10/2024 9:55 AM RN TRANSFER 09/10/2024 Narrative [facility] INSURANCE BILL - 09/11/2024 8:12 AM RN TRANSFER [facility] [address] [place] [address] [id number] [employer] Worker: Armen Rodrigues PhD, Phone: [phone] Rosa Gallo MD LAB - CHEMISTRY ORDERAB LES Final Result [facility] INSURANCE BILL [address] [place] [address] * HEPATITIS C ANTIBODY W RFLX PCR (10/14/2023 11:36 AM RN TRANSFER) Hepatitis C Antibody Non Reactive Non Reactive [facility] ACCOUNT BILL Comment:FASTING Blood BLOOD SPECIMEN / Unknown 10/14/2023 11:36 AM RN TRANSFER 10/14/2023 Narrative Resulting Agency Comment Lab Testing performed at: [address] [id number] Rosa Gallo MD LAB - CHEMISTRY ORDERAB LES Final Result Performing Organization Address City/[facility]/ZIP Co de Phone Number [facility] ACCOUNT BILL [address] [place] [address] * HIV-1 HIV-2 ANTIBODY + HIV P24 AG PANEL (10/14/2023 11:36 AM RN TRANSFER) HIV Screen 4th Generation w Reflex Non Reactive Non Reactive [facility] ACCOUNT BILL Comment: HIV Negative HIV-1/HIV-2 antibodies and HIV-1 p24 antigen were NOT detected. There is no laboratory evidence of HIV infection. FASTING Blood BLOOD SPECIMEN / Unknown 10/14/2023 11:36 AM RN TRANSFER 10/14/2023 Narrative Resulting Agency Comment Lab Testing performed at: [address] [phone] us Rosa Gallo MD LAB - CHEMISTRY ORDERAB LES Final Result [facility] ACCOUNT BILL [address] [address] from Last 3 Months or Most Recently Relevant to Health Maintenance Insurance [employer] [place] [address] Care Teams Remedial Masseur Relationship Specialty Start Date End Date Rsoa Gallo MD [address] [place] [address] PCP - General Internal Medicine 10/14/23
--- OUTSIDE RECORDS SUMMARY | 2025-05-13 09:49 | XMS_ITS | Clinical Summary ---
Author Organization [facility] al Address [address] [place] [address] Care Team Providers Care Sales Team Recruiter Name Role Phone Bravo Castanon DO Unavailable Brandyn Khan MD Unavailable [phone] Neil Landaverde MD Unavailable [phone] Rosa Gallo MD Primary Care Provid er Allergies Active Allergy Reactions Criticality Noted Date Comments Adhesive Hives,Itching Medium 12/28/2018 Hydrocodone Nausea only Low 03/11/2011 Hydrocodone-Acetaminophen Nausea & Vomiting,Other (See comments) Low 02/16/2013 Reaction: Morphine Other (See comments) Low 02/16/2013 Reaction: Low b/p Oxycodone Diarrhea,Nausea & Vomiting,Nausea And Vomiting Low 02/16/2013 Prochlorperazine Other (See comments) Low 02/16/2013 Extreme fatigue Sulfa (Sulfonamide Antibiotics) Other (See comments) Low 03/11/2011 Reaction: Vancomycin Itching,Rash,Urtica tristan Medium 08/05/2011 Medications pseudoephedrine- ibuprofen 30-200 mg tablet TAKE 1 TABLET EVERY 4 HOURS NEEDED. Active calcium carb-mag oxide-vit D3 200-100-100 mg-mg-unit capsule Take by mouth Active drospirenone (SLYND ORAL) Take 4 mg by mouth daily Active BinaxNOW COVID-19 Ag Self Test kit Use as Directed on the Package 2 Active fexofenadine (DENZEL) 60 mg tablet Take 1 tablet (60 mg total) by mouth daily Active sertraline (ZOLOFT) 25 mg tablet Take 1 tablet (25 mg total) by mouth daily Active cholecalciferol (VITAMIN D-3) 50,000 unit capsule Take 1 capsule (50,000 Units total) by mouth once a week Pt takes this every other week Active drospirenone-e.e stradioL-lm.FA 3-0.02-0.451 mg (24) (4) tablet Take by mouth daily Active lidocaine viscous (XYLOCAINE) 2 % solution 4 Active drospirenone, contraceptive, (Slynd) tablet tablet Take 1 each (4 mg total) by mouth daily Active atorvastatin (LIPITOR) 40 mg tabletIndication s:Mixed hyperlipidemia,E levated LDL cholesterol level Take 1 tablet (40 mg total) by mouth daily 30 tablet 11 5 12/22/19 26 Active Active Problems Problem Noted Date Diagnosed Date Vitamin D deficiency 01/21/2020 Overview (01/21/2020): Calcium, D 4000 IU daily No fractures 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 Lung nodule resections 2010 and 2011. 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 - (Added by TW Conv) Anxiety disorder Anxiety - (Adde d by TW Conv) Tobacco abuse counseling Encount er for smoking cessation counseling - (Added by TW Conv) Family History Medical History Relation Name Comments Lung cancer Father Prostate cancer Father's Brother Skin cancer Father's Brother Bone cancer Maternal Grandmother Breast cancer Maternal Grandmother Prostate cancer Paternal Grandfather Testicular cancer Paternal Grandfather Skin cancer Paternal Grandmother Relation Name Status Comments Father Father's Brother Maternal Grandmother Paternal Grandfather Paternal Grandmother Social History Tobacco Use Types Packs/Day Years Used Date Smoking Tobacco: Former Cigarettes Smokeless Tobacco: Never Tobacco Cessation:Counseling Given: Not Answered Comments Unknown Sex and Gender Information Value Date Recorded Sex Assigned at Not on file Legal Sex Female 3:24 AM LAW[employer] Gender Identity Not on file Sexual Orientation Not on file Obstetrics History Last Filed Vital Signs Vital Sign Reading Time Taken Comments Blood Pressure 128/84 12/21/2024 9:13 AM CDT Pulse 74 12/21/2024 9:13 AM CDT Temperature 36.4 C (97.6 F) 12/21/2024 9:13 AM CDT Respiratory Rate 20 12/21/2024 9:13 AM CDT Oxygen Saturation 100% 12/21/2024 9:13 AM CDT Inhaled Oxygen Concentration - - Weight 75.1 kg (165 lb 9.6 oz) 12/21/2024 9:13 A M CDT Height 165.1 cm (5' 5) 12/21/2024 9:13 AM CDT Body Mass Index 27.56 12/21/2024 9:13 AM CDT Plan of Treatment Health Maintenance Due Date Last Done Comments Breast Cancer Screening-Mammogram 1984 Cervical Cancer Screening 1984 Depression Screening 1984 Hepatitis C Screening 1984 DTaP/Tdap/Td Vaccine (1 - Tdap) 1995 Varicella Vaccines (1 of 2 - 13+ 2-dose series) 1997 Hepatitis B Screening 2002 Regular Well Visit/Exam 18-64 2002 Pneumococcal vaccine <65 (1 of 2 - PCV) 2003 Zoster Vaccine (1 of 2) 2003 HPV Vaccines (1 - Risk 3-dose SCDM series) 2011 Covid-19 Vaccine (3 - Pfizer risk series) 06/06/2021 05/09/2021, 04/18/2021 Influenza Vaccine (#1) [address] [facility] [employer]ams[employer] [facility] Care Teams Sales Team Recruiter Relationship Specialty Start Date End Date Rosa Gallo MD [address] [place] [id number] PCP - General Internal Medicine 12/22/23 Bravo Castanon DO Referring Physician Medical Oncology 12/11/18 Brandyn Khan MD [address] [facility] [id number] [place] [address] Consulting Physician Gynecologic Oncology 12/11/18 Neil Landaverde MD [address] [facility] [id number] [place] [address] Consulting Physician Gynecologic Oncology 12/11/18
--- OUTSIDE RECORDS SUMMARY | 2025-05-13 09:49 | XMS_ITS ---
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 Lung nodule resections 2010 and 2011. 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 Past Treatment and Therapy Plans No past plan information found. Lifetime Dose Tracking * Chemical Lifetime Dose Automatic Entry Manual Entr y DLP 1,629 mGycm 1,629 mGycm 0 mGycm
== END 2025-05-13 09:42 | disposition home or self-care (01) ==
LOC: ANHIMG 09:46
PROVIDERS: PCP Internal Medicine; Visit Provider Obstetrics & Gynecology
DX: Z12.31 Encounter for screening mammogram for malignant neoplasm of breast (principal)
CPT/HCPCS: 77063; 77067